=== PATIENT | male | born 1970 | race African-American/Black ===

== ENCOUNTER 2019-08-23 08:00 | Emergency (ER) | payer OTHER ==
[2019-08-23 08:05] VITALS: BP 149/86
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
== END 2019-08-23 09:20 | disposition home or self-care (01) ==
LOC: ER 08:00
DX: S16.1XXA Strain of muscle, fascia and tendon at neck level, initial encounter (principal); S39.012A Strain of muscle, fascia and tendon of lower back, initial encounter; M54.2 Cervicalgia; R51 Headache; V89.2XXA Person injured in unspecified motor-vehicle accident, traffic, initial encounter
CPT/HCPCS: 99283